=== PATIENT | female | born 1965 | race Two or more races ===

== ENCOUNTER 2023-02-01 21:47 | Emergency (ER) | payer MEDICAID, OTHER ==
[~2023-02-01] VITALS: Ht 165.1 cm; Wt 70.3 kg
[2023-02-02 03:16] VITALS: BP 119/51; PULSE 82; RESP 16; TEMP 98.2; O2SAT 97
== END 2023-02-02 04:37 | disposition home or self-care (01) ==
LOC: ER 21:47
DX: H20.9 Unspecified iridocyclitis (principal); E11.9 Type 2 diabetes mellitus without complications